=== PATIENT | female | born 1960 | race Caucasian/White ===

== ENCOUNTER 2016-10-03 17:25 | Emergency (ER) | payer SELFPAY ==
[~2016-10-03] VITALS: Ht 166.4 cm; Wt 61.4 kg
[2016-10-03 17:31] VITALS: BP 133/76; PULSE 106; RESP 15; O2SAT 98
--- NOTE | 2016-10-03 21:06 | ED.REPORT ---
HPI-Extremity Problem Lower Date of Service Oct 03, 2016 ED Provider: Kalyan Hernandez MD A 55 year old female with no pertinent medical history presents to the ED complaining of right first toe pain. The pt is experiencing redness, pain, and swelling of this toe, in addition to feeling feverish. She believes that her symptoms are due to an ingrown toenail that is now infected. Nursing Notes Stated Complaint: INFECTED TOE NAIL Chief Complaint: Extremity Trauma Nursing Notes Reviewed: Yes Scheduled Cephalexin (Keflex) 500 Mg Capsule 500 MG PO TID Scheduled PRN Naproxen (Naprosyn) 500 Mg Tablet 500 MG PO BID PRN PRN For Pain General Time Seen by MD: 21:05 Chief Complaint Other (Ingrown toenail) Hx Obtained From: Patient Arrived By: Walk-in Recent Healthcare: No recent doctor visit, No recent hospitalization Similar Sx Previous: No Past Medical History Past Medical History none reported Past Surgical History Smoking History Unknown if Ever Smoker Social History Other Social History: Good social support Ambulatory Status Independent Review of Systems Constitutional: Reports: Fever Musculoskeletal: Reports: Extremity pain, Denies: Back pain, Neck pain Skin: Denies Rash Complete sys rev & neg: except as marked. Respiratory: Denies: Non-productive cough, Shortness of breath Cardiovascular: Denies: Chest pain GI: Denies: Abdominal pain, Vomiting Physical Exam Initial Vital Signs Vital Signs (First) Date Time Temp Pulse Resp B/P Pulse Ox O2 Delivery O2 Flow Rate FiO2 10/03/16 17:31 37.2 106 15 133/76 98 Room Air Initial VS: Reviewed Lower Extremity / Pelvis / MS: Atraumatic, Full range of motion Ankle / Foot: Full range of motion ingrown toenail nail thickened with fungal substrate medial side of right first toe inflamed and red General/Constitutional: Awake, Alert Respiratory / Chest: Atraumatic, No respiratory distress Cardiovascular: Heart rate NL Skin: Atraumatic, Color NL, No rash, Warm, Dry Neurologic: Oriented X3, Speech NL, No motor deficits, No sensory deficits Head / Eyes: Atraumatic, Normocephalic ENT: Atraumatic, Airway patent, Mucous membranes moist Neck: Atraumatic, Full range of motion Abdomen: Atraumatic Back: Atraumatic, Full range of motion Upper Extremity / MS: Atraumatic, Full range of motion Psychiatric: Affect NL, Mood NL Re-Eval/Medical Decision Med Decision/Clinical Course 55-year-old presents with ingrown nail. She has been referred to podiatry but insurance issues prevented the visit. She has a moderate ingrown toenail apparent, and insists that she is feeling feverish and sick as a result. No other focal symptoms to identify a source of fever. She is not in fact febrile here. She was offered Keflex empirically, hot soaks and bacitracin, and return to podiatry, or potentially to return here at a time when a takedown of her nail can be accomplished. The department is currently too busy for elective procedure. The nail does appear to have onychomycosis and probably should be taken off completely. She is discharged in stable condition. Re-Evaluation/Progress : Time of Eval: 21:05 Patient Status: Condition improved Re-Evaluation/Progress Note: Pt informed of her diagnosis and the plan for discharge during the initial interview. The pt understands and agrees with the plan. All questions are addressed at this time. Counseled Regarding: Diagnosis, Need for follow-up, When/why to return to ED Discharge & Departure Impression: Primary Impression: Ingrown right big toenail Additional Impression: Onychomycosis Disposition: Home Discharge Condition All VS Reviewed: Yes Condition: Stable Patient Instructions: Acute Wound Care (ED), Ingrown Nail (ED) Additional Instructions: Begin Keflex three times daily. Begin Naprosyn twice daily with food for pain. Begin Hot soaks four times daily for ten minutes each time, with application of Neosporin ointment to the edge of the nail after each soak. Secure that with a loose Band-Aid to holding ointment into the crease. This nail needs to be removed. There also appears to be fungal infection there, and that can be treated once nail iss removed. Return if needed tomorrow during the day, but be preferable to have this managed by podiatry. Follow up with your doctor in the office. Referrals: [facility] Scribe Attestation Portions of this note were transcribed by Irma Musa. I, Dr. Hernandez personally performed the history, physical exam and medical decision-making; I reviewed and confirmed the accuracy of the information in the transcribed note. Signed by: Nathaniel Youssef, 10/03/2016 and 2123. copies to: [facility] Kalyan Hernandez MD Oct 03, 2016 21:06 IRMA MUSA Oct 03, 2016 21:13
[2016-10-03] MEDS ORDERED: NAPR500T PO (21:17)
[2016-10-03] MEDS ORDERED: CEPH-512 PO (21:17)
== END 2016-10-03 21:26 | disposition home or self-care (01) ==
LOC: SED 17:25
DX: L60.0 Ingrowing nail (principal); B35.1 Tinea unguium; R50.9 Fever, unspecified